=== PATIENT | male | born 1970 | race Two or more races ===

== ENCOUNTER 2024-12-12 06:39 | Day surgery (SDC) | payer OTHER ==
[2024-12-12] MEDS ORDERED: MIDAZOLAM HCL 2 MG/2 ML VIAL IV ONE (11:30)
[2024-12-12] MEDS ORDERED: DIPHENHYDRAMINE HCL 50 MG/ML VIAL 1ML IV ONE (11:30)
[2024-12-12] MEDS ORDERED: fentaNYL CITRATE 50 MCG/ML AMPUL IV ONE (11:30)
== END 2024-12-12 12:40 | disposition home or self-care (01) ==
LOC: AMB-ENDOS 06:39
PROVIDERS: ATTEND Surgery
DX: K57.30 Diverticulosis of large intestine without perforation or abscess without bleeding (principal); K57.32 Diverticulitis of large intestine without perforation or abscess without bleeding; R19.4 Change in bowel habit; R10.9 Unspecified abdominal pain; K64.8 Other hemorrhoids